=== PATIENT | female | born 1950 | race Caucasian/White ===

== ENCOUNTER 2019-11-03 12:32 | Outpatient (CLI) | payer MEDICARE, SELFPAY ==
[2019-11-03 12:49] LABS: Basophils Percent Auto 0.8 % (0.2-1.2); Eosinophils Percent Auto 0.8 % (0-4.4); Hematocrit 41.1 % (37.0-47.0); Hemoglobin 13.3 g/dL (12.0-15.0); Immature Granulocyte Absolute 0.01 K/mm3 (0.00-0.031); Immature Granulocyte Percent A 0.3 % (0-0.5); Lymphocytes Absolute Auto 1.42 K/mm3 (0.9-3.2); Lymphocytes Percent Auto 38.7 % (18.3-44.2); Mean Corpuscular HGB Conc 32.4 g/dl (32-36); Mean Corpuscular Hemoglobin 30.5 pg (26-34); Mean Corpuscular Volume 94.3 fl (80-100); Mean Platelet Volume 10.4 fl (7.4-10.4); Monocytes Absolute Auto 0.4 K/mm3 (0.1-0.6); Monocytes Percent Auto 9.8 % (2.6-8.5); Neutrophils Absolute Auto 1.8 K/mm3 (1.3-6.7); Neutrophils Percent Auto 49.6 % (45.5-73.1); Platelet Count Result 146 k/mm3 (150-375); Red Blood Count 4.36 M/mm3 (4.2-5.4); Red Cell Distribution Width 12.6 % (11.5-14.5); White Blood Count 3.7 K/mm3 (4.5-10.0)
[2019-11-03 12:54] LABS: Blood Urea Nitrogen 28 mg/dL (8-26); Carbon Dioxide 28 mmol/L (22-30); Chloride 100 mmol/L (98-109); Estimated Glomerular Filt Rate 55; Glucose 122 mg/dL (70-105); Potassium 3.8 mmol/L (3.5-4.9); Sodium 139 mmol/L (138-146)
[2019-11-03 16:33] LABS: Alanine Aminotransferase 27 U/L (4-35); Albumin Level 4.2 g/dL (3.5-5.1); Alkaline Phosphatase 65 U/L (38-126); Aspartate Amino Transferase 38 U/L (14-36); Bilirubin,Total 0.5 mg/dL (0.2-1.3); Blood Urea Nitrogen 28 mg/dL (7-17); Calcium 9.3 mg/dL (8.4-10.2); Carbon Dioxide 30 mmol/L (22-30); Chloride 100 mmol/L (98-107); Estimated Glomerular Filt Rate > 60; Glucose 116 mg/dL (65-105); Potassium 3.9 mmol/L (3.4-5.0); Sodium 136 mmol/L (137-145)
== END 2019-11-03 12:33 | disposition home or self-care (01) ==
LOC: ANHLAB 12:34
PROVIDERS: PCP Family Medicine; Visit Provider Internal Medicine Hematology & Oncology
DX: D72.819 Decreased white blood cell count, unspecified (principal)
CPT/HCPCS: 36415; 80048; 80053; 85025

== ENCOUNTER 2020-02-08 09:42 | Emergency (ER) | payer MEDICARE, SELFPAY ==
[2020-02-08 09:54] VITALS: BP 147/75; PULSE 65; RESP 20; TEMP 36.3; O2SAT 99
--- NOTE | 2020-02-08 09:57 | ED.FEMALEGU ---
HPI - Female Genitourinary General Chief complaint: Urogenital-Female Stated complaint: pos uti Source: patient and RN notes reviewed Mode of arrival: ambulatory Limitations: no limitations History of Present Illness HPI Narrative: The patient, on several routine meds, presents with urinary discomfort. Patient states she has a one-week history of urinary frequency and urgency. No hematuria, fever, low back pain, abdominal pain, N/V/D, vaginal discharge, cough, shortness of breath, loss of taste/smell. Symptoms are mild, unrelieved with OTC preparations and pushing fluids, most noticeable with micturition, similar to prior episode years ago Related Data Home Medications Medication Instructions Recorded Confirmed albuterol sulfate 90 mcg/actuation 2 puff INHALATION Q4H PRN gm 11/12/19 02/08/20 aerosol inhaler aspirin 81 mg tablet,delayed 81 mg PO DAILY 11/12/19 02/08/20 release cholecalciferol (vitamin D3) 25 25 mcg PO BID tablet 11/12/19 02/08/20 mcg (1,000 unit) tablet losartan 50 mg-hydrochlorothiazide 1 tablet PO DAILY 11/12/19 02/08/20 12.5 mg tablet meloxicam 15 mg tablet 15 mg PO DAILY 11/12/19 02/08/20 montelukast 10 mg tablet 10 mg PO DAILY 11/12/19 02/08/20 multivitamin 1 tablet PO DAILY 11/12/19 02/08/20 omega-3 fatty acids 1,000 mg 1,000 mg PO DAILY 11/12/19 02/08/20 capsule omeprazole 40 mg capsule,delayed 40 mg PO DAILY 11/12/19 02/08/20 release Allergies Allergy/AdvReac Type Severity Reaction Status Date / Time No Known Allergies Allergy Verified 02/08/20 09:45 Review of Systems Review of Systems: Narrative: General/Constitutional: No weight loss,fever Eyes: N0: Redness,discharge Ears/Nose/Throat: No: Epistaxis,ear discharge Respiratory: Denies: Hemoptysis Gastrointestinal: No Vomiting, Bleeding-rectal Skin: No Lumps, eruption Neurologic: No Focal Weakness,Sz Hematologic: Denies: Petechiae/Purpura Psychiatric: No: Suicida ideationl All Other Systems: Reviewed and Negative [facility] Family History Family History (Updated 04/24/18 @ 10:17 by DOCTOR UNKNOWN) Father Family history of congestive heart failure Mother Patient's mother is Social History Social History Smoking status: Former smoker Smoking end date: 07/09/99 Alcohol intake: current Gender identity (if verbalized by the patient): Female Comments At time of signature, agree with nursing past medical, surgical, social and family history. There is no relevant family history pertinent to the presenting complaint Exam Narrative: Exam Narrative: General Appearance: Well appearing, No distress EYE: PERRLA, Conjunctiva clear Mouth/Throat: Normal appearing, Normal lips, Supple Respiratory: Airway patent, No respiratory distress Abdomen: Soft, Non-tender, Musculoskeletal: Full ROM Skin: Warm, Dry Neurological: A&O x3, CN II-X intact Psychiatric: Normal mood, Normal affect Course Vital Signs Vital signs: Vital Signs Temperature 97.4 F L 02/08/20 09:54 Pulse Rate 65 02/08/20 09:54 Respiratory Rate 20 02/08/20 09:54 Blood Pressure 147/75 H 02/08/20 09:54 Pulse Oximetry 99 02/08/20 09:54 Temperature 97.4 F L 02/08/20 09:54 Pulse Rate 65 02/08/20 09:54 Respiratory Rate 20 02/08/20 09:54 Blood Pressure 147/75 H 02/08/20 09:54 Pulse Oximetry 99 02/08/20 09:54 MDM - Female Genitourinary Lab Data Labs: Urine Glucose Negative Reference Range: Negative Urine Bilirubin Negative Reference Range: Negative Urine Ketone Negative Reference Range: Negative Urine Specific [place] 1.010 Reference Range:1.001-1.035 Urine Blood 1+ Reference Range: Negative * * Urine pH 7.0 Reference Range: 5.0-9.0 Urine Protein Negati
== END 2020-02-08 10:24 | disposition home or self-care (01) ==
PROVIDERS: Emergency Provider Emergency Medicine; PCP Family Medicine
DX: N30.00 Acute cystitis without hematuria (principal); Z79.82 Long term (current) use of aspirin; Z87.891 Personal history of nicotine dependence
CPT/HCPCS: 81003; 87086; 87088; 99213; G0463

== ENCOUNTER 2020-06-21 13:59 | Outpatient (CLI) | payer MEDICARE, SELFPAY ==
[2020-06-21 14:15] LABS: Basophils Percent Auto 0.9 % (0.2-1.2); Eosinophils Absolute Auto 0.1 K/mm3 (0-0.3); Eosinophils Percent Auto 1.4 % (0-4.4); Hemoglobin 13.3 g/dL (12.0-15.0); Lymphocytes Absolute Auto 1.57 K/mm3 (0.9-3.2); Lymphocytes Percent Auto 36.4 % (18.3-44.2); Mean Corpuscular HGB Conc 32.4 g/dl (32-36); Mean Corpuscular Hemoglobin 29.6 pg (26-34); Mean Corpuscular Volume 91.3 fl (80-100); Mean Platelet Volume 10.3 fl (7.4-10.4); Monocytes Absolute Auto 0.4 K/mm3 (0.1-0.6); Neutrophils Absolute Auto 2.2 K/mm3 (1.3-6.7); Neutrophils Percent Auto 51.3 % (45.5-73.1); Platelet Count Result 177 k/mm3 (150-375); Red Blood Count 4.49 M/mm3 (4.2-5.4); Red Cell Distribution Width 12.5 % (11.5-14.5); White Blood Count 4.3 K/mm3 (4.5-10.0)
[2020-06-21 15:23] LABS: Alanine Aminotransferase 27 U/L (4-35); Albumin Level 4.2 g/dL (3.5-5.1); Alkaline Phosphatase 63 U/L (38-126); Anion Gap 8 mmol/L (8-16); Aspartate Amino Transferase 35 U/L (14-36); Bilirubin,Total 0.4 mg/dL (0.2-1.3); Blood Urea Nitrogen 31 mg/dL (7-17); Calcium 9.7 mg/dL (8.4-10.2); Carbon Dioxide 30 mmol/L (22-30); Chloride 102 mmol/L (98-107); Estimated Glomerular Filt Rate 49; Glucose 101 mg/dL (65-105); Potassium 3.7 mmol/L (3.4-5.0); Sodium 140 mmol/L (137-145)
[2020-06-22 11:24] LABS: Blood Urea Nitrogen 31 mg/dL (8-26); Carbon Dioxide 29 mmol/L (22-30); Chloride 102 mmol/L (98-109); Estimated Glomerular Filt Rate 49; Glucose 99 mg/dL (70-105); Potassium 3.7 mmol/L (3.5-4.9); Sodium 140 mmol/L (138-146)
== END 2020-06-21 14:00 | disposition home or self-care (01) ==
LOC: ANHLAB 14:01
PROVIDERS: PCP Family Medicine; Visit Provider Internal Medicine Hematology & Oncology
DX: D69.6 Thrombocytopenia, unspecified (principal)
CPT/HCPCS: 36415; 80048; 80053; 85025

== ENCOUNTER 2020-06-29 13:14 | Outpatient (CLI) | payer MEDICARE, SELFPAY ==
--- NOTE | ~2020-06-29 | MM_ITS ---
EXAMINATION: MM screening [facility] HISTORY: Screening mammogram TECHNIQUE: Craniocaudal and mediolateral oblique 3-D tomosynthesis images were obtained and synthetic 2-D images were generated. CAD analysis was submitted and interpreted. COMPARISON: 06/27/2019, 06/25/2018, 06/22/2017 bilateral digital screening mammogram examinations BREAST PARENCHYMAL COMPOSITION: There are scattered areas of fibroglandular density. FINDINGS: Stable mild fibroglandular asymmetry. There is no evidence of suspicious mass, calcificatio n, or architectural distortion to suggest malignancy in either breast. There has been no suspicious i nterval change. IMPRESSION: 1. No mammographic evidence of malignancy. 2. Recommend routine screening mammography in one year. BI-RADS Category 2: Benign finding(s). Reviewed, dictated and finalized at location A. ING ASSISTANT
== END 2020-06-29 13:15 | disposition home or self-care (01) ==
PROVIDERS: PCP Family Medicine; Visit Provider Obstetrics & Gynecology
DX: Z12.31 Encounter for screening mammogram for malignant neoplasm of breast (principal)
CPT/HCPCS: 77063; 77067

== ENCOUNTER 2020-11-27 17:48 | Emergency (ER) | payer MEDICARE, SELFPAY ==
--- NOTE | ~2020-11-27 | XR_ITS ---
EXAMINATION: XR knee RT min 4V DATE: 11/27/2020 18:37 INDICATION: Right knee pain and swelling TECHNIQUE: Four views of the right knee were obtained. COMPARISON: None. FINDINGS: Alignment is normal. No fracture or osteochondral lesion. There is a small knee joint effus ion. No joint effusion/synovitis. Soft tissues are unremarkable. IMPRESSION: 1. Small knee joint effusion without acute osseous abnormality. Reviewed, dictated and finalized at location A.
[2020-11-27 17:51] VITALS: BP 153/77; PULSE 62; RESP 17; TEMP 36.2; O2SAT 100
--- NOTE | 2020-11-27 18:24 | ED.LOWEXIN ---
HPI - Extremity Injury (Lower) General Chief Complaint: Extremity Injury, Lower Stated Complaint: right leg injury Time Seen by Provider: 11/27/20 17:59 History of Present Illness HPI Narrative: Patient is a 70-year-old female who presents ER with right knee pain. Patient reports she has been having some discomfort in her right lower extremity from her hip to her knee over the last week. Today she was stepping to get in her car when her right knee buckled and she had sudden worsening of her pain. Its in her posterior knee. Has pain with bearing weight. Reports mild swelling over the last 2 days to the knee but not the lower extremity. No numbness or tingling to lower extremity. No calf pain or chest pain or shortness of breath. Patient reports worsening of pain in her knee with lateral movements of the foot in relation to the knee. Related Data Home Medications Medication Instructions Recorded Confirmed aspirin 81 mg tablet,delayed 81 mg PO DAILY 11/12/19 11/12/20 release cholecalciferol (vitamin D3) 25 25 mcg PO BID tablet 11/12/19 11/12/20 mcg (1,000 unit) tablet losartan 50 mg-hydrochlorothiazide 1 tablet PO DAILY 11/12/19 11/12/20 12.5 mg tablet meloxicam 15 mg tablet 15 mg PO DAILY 11/12/19 11/12/20 multivitamin 1 tablet PO DAILY 11/12/19 11/12/20 omega-3 fatty acids 1,000 mg 1,000 mg PO DAILY 11/12/19 11/12/20 capsule omeprazole 40 mg capsule,delayed 40 mg PO DAILY 11/12/19 11/12/20 release Allergies Allergy/AdvReac Type Severity Reaction Status Date / Time No Known Allergies Allergy Verified 11/27/20 17:51 Review of Systems Constitutional: Constitutional: Denies chills and Denies fever(s) Cardiovascular: Cardiovascular: Denies chest pain Respiratory: Respiratory: Denies dyspnea Musculoskeletal: Musculoskeletal: Reports arthralgias and Reports joint swelling Neurologic: Denies focal weakness and Denies numbness PMFSH Past Medical History Medical History (Updated 11/27/20 @ 19:50 by Christopher Hung MD) GERD (gastroesophageal reflux disease) Hypertension Surgical History Surgical History (Updated 11/27/20 @ 18:26 by Christopher Hung MD) No pertinent past surgical history Family History Family History Father Family history of congestive heart failure Mother Patient's mother is Social History Social History Smoking status: Former smoker Smoking end date: 07/09/99 Alcohol intake: current Gender identity (if verbalized by the patient): Female Exam Narrative: Exam Narrative: GENERAL: Well-appearing, well-nourished, and in no acute distress. HEAD: Normocephalic, atraumatic. EXTREMITIES: Focused exam of the right lower extremity shows normal range of motion of the hip/knee/ankle. Patient with increased pain of the right knee with flexion past 90 degrees. Mild swelling to the knee. No redness. No increase elasticity with varus and valgus stressing. Patient does have positive Apley with medial and lateral stressing. Normal pulses in the right lower extremity. No edema in the foot. Negative Homans' sign. SKIN: Warm, dry, no rash. NEURO: No focal deficits. Alert and oriented x3. PSYCH: Normal mood and affect. Course Course Emergency Course: Informed results. Discharge home. Recommend continue meloxicam in addition of Tylenol. Rest, ice, compression, elevation also encouraged. Discussed she should contact PCP for close follow-up. Verbalized understanding. Patient was able to ambulate with a walker while. Vital Signs Vital signs: Vital Signs Temperature 97.2 F L 11/27/20 17:51 Pulse Rate 62 11/27/20 17:51 Respiratory Rate 17 11/27/20 17:51 Blood Pressure 153/77 H 11/27/20 17:51 Pulse Oximetry 100 11/27/20 17:51 Temperature 97.2 F L 11/27/20 17:51 Pulse Rate 62 11/27/20 17:51 Respiratory Rate 17 0
[2020-11-27 20:10] VITALS: BP 149/78; PULSE 69; RESP 20; O2SAT 98
== END 2020-11-27 20:13 | disposition home or self-care (01) ==
PROVIDERS: Emergency Provider Emergency Medicine; PCP Family Medicine
DX: M25.461 Effusion, right knee (principal); Z79.82 Long term (current) use of aspirin; K21.9 Gastro-esophageal reflux disease without esophagitis; I10 Essential (primary) hypertension; Z87.891 Personal history of nicotine dependence
CPT/HCPCS: 73564; 99283

== ENCOUNTER 2021-11-15 09:56 | Outpatient (CLI) | payer MEDICARE, SELFPAY ==
--- NOTE | ~2021-11-15 | MM_ITS ---
EXAMINATION: MM screening [facility] w [facility] HISTORY: Screening TECHNIQUE: Craniocaudal and mediolateral oblique 3-D tomosynthesis images were obtained and synthetic 2-D images were generated. CAD analysis was submitted and interpreted. COMPARISON: Comparison to multiple prior studies sequentially, with oldest reviewed study dated 05/11. BREAST PARENCHYMAL COMPOSITION: There are scattered areas of fibroglandular density. FINDINGS: There is no evidence of suspicious mass, calcification, or architectural distortion to sugg est malignancy in either breast. There has been no suspicious interval change. IMPRESSION: 1. No mammographic evidence of malignancy. 2. Recommend routine screening mammography in one year. BI-RADS Category 1: Negative Reviewed, dictated and finalized at location A.
== END 2021-11-15 09:57 | disposition home or self-care (01) ==
LOC: ANHIMG 09:57
PROVIDERS: PCP Family Medicine; Visit Provider Obstetrics & Gynecology
DX: Z12.31 Encounter for screening mammogram for malignant neoplasm of breast (principal)
CPT/HCPCS: 77063; 77067

== ENCOUNTER 2022-11-28 14:16 | Outpatient (CLI) | payer MEDICARE, SELFPAY ==
--- NOTE | ~2022-11-28 | MM_ITS ---
EXAMINATION: MM screening [facility] w [facility] HISTORY: Screening mammogram TECHNIQUE: Craniocaudal and mediolateral oblique 3-D tomosynthesis images were obtained and synthetic 2-D images were generated. CAD analysis was submitted and interpreted. COMPARISON: 11/15/2021, 06/29/2020, 06/27/2019 BREAST PARENCHYMAL COMPOSITION: There are scattered areas of fibroglandular density. FINDINGS: There is chronic focal asymmetry in the posterior third of the upper outer quadrant of the right breast. No suspicious mass, calcification, or architectural distortion are identified in either breast to suggest malignancy. There has been no suspicious interval change. IMPRESSION: 1. No mammographic evidence of malignancy. 2. Recommend routine screening mammography in one year. BI-RADS Category 2: Benign finding(s). Reviewed, dictated and finalized at location A.
== END 2022-11-28 14:17 | disposition home or self-care (01) ==
PROVIDERS: PCP Family Medicine; Visit Provider Obstetrics & Gynecology
DX: Z12.31 Encounter for screening mammogram for malignant neoplasm of breast (principal)
CPT/HCPCS: 77063; 77067

== ENCOUNTER 2023-12-04 14:11 | Outpatient (CLI) | payer MEDICARE, SELFPAY ==
--- NOTE | ~2023-12-04 | MM_ITS ---
EXAMINATION: MM screening [facility] HISTORY: Screening TECHNIQUE: Craniocaudal and mediolateral oblique 3-D tomosynthesis images were obtained and synthetic 2-D images were generated. CAD analysis was submitted and interpreted. COMPARISON: Comparison to multiple prior studies sequentially, with oldest reviewed study dated 06/08. BREAST PARENCHYMAL COMPOSITION: There are scattered areas of fibroglandular density. FINDINGS: There is no evidence of suspicious mass, calcification, or architectural distortion to sugg est malignancy in either breast. There has been no suspicious interval change. IMPRESSION: 1. No mammographic evidence of malignancy. 2. Recommend routine screening mammography in one year. BI-RADS Category 1: Negative Reviewed, dictated and finalized at location B.
== END 2023-12-04 14:12 | disposition home or self-care (01) ==
PROVIDERS: PCP Family Medicine; Visit Provider Obstetrics & Gynecology
DX: Z12.31 Encounter for screening mammogram for malignant neoplasm of breast (principal)
CPT/HCPCS: 77063; 77067

== ENCOUNTER 2024-01-04 10:45 | Outpatient (CLI) | payer MEDICARE, SELFPAY ==
--- NOTE | ~2024-01-04 | XR_ITS ---
3 VIEWS LUMBAR SPINE Ordering provider: Doreen Flores History: . RT SIDED LBP X 1 YR, NEW ANTERIOR NUMBNESS W/WALKING . Comparison: None. FINDINGS: VERTEBRAL BODIES:Levoscoliosis. Loss of volume of L1 and L2 most likely chronic. DISK SPACES: Narrowing of the disc spaces T12-L1, L1-L2, L2-L3, L3-L4, L4-L5 and L5-S1. Multilevel fa cet joint disease. SOFT TISSUES: Calcific areas in the left renal region which may be a stone. IMPRESSION: No acute osseous abnormality lumbar spine. Loss of volume of L1 and L2 most likely chronic compression. Levoscoliosis. Reviewed, dictated and finalized at location A.
== END 2024-01-04 10:46 | disposition home or self-care (01) ==
PROVIDERS: PCP Family Medicine
DX: M54.50 Low back pain, unspecified (principal); M41.86 Other forms of scoliosis, lumbar region
CPT/HCPCS: 72110

== ENCOUNTER 2024-02-05 11:05 | Emergency (ER) | payer MEDICARE, SELFPAY ==
--- NOTE | 2024-02-05 11:10 | ED.URI ---
HPI - URI/Sore Throat General Chief Complaint: Upper Respiratory Infection Stated Complaint: cold symptoms Time Seen by Provider: 02/05/24 11:16 Source: patient Mode of arrival: ambulatory Limitations: no limitations History of Present Illness HPI Narrative: Cheyanne is a 73-year-old female patient presenting to the clinic today with complaints of nasal congestion, cough, and scratchy sore throat for the past 6 days. She just got back from [place]. Reports that the cough is keeping her up at night. States that when she blew her nose this morning she had a low bit of green drainage. Reports some sinus pressure/headache. Denies any shortness of breath or cough. MD elicited complaint: cough, sore throat and nasal congestion Related Data Home Medications Medication Instructions Recorded Confirmed aspirin 81 mg tablet,delayed 81 mg PO DAILY 11/12/19 02/05/24 release losartan 50 mg-hydrochlorothiazide 1 tablet PO DAILY 11/12/19 02/05/24 12.5 mg tablet meloxicam 15 mg tablet 15 mg PO DAILY 11/12/19 02/05/24 multivitamin (Daily Multi-Vitamin 1 tablet PO DAILY 11/12/19 02/05/24 tablet) omega-3 fatty acids 1,000 mg 1,000 mg PO DAILY 11/12/19 02/05/24 capsule (Fish Oil Concentrate) omeprazole 40 mg capsule,delayed 40 mg PO DAILY 11/12/19 02/05/24 release ergocalciferol (vitamin D2) 1,250 50,000 unit PO WEEKLY 11/13/22 02/05/24 mcg (50,000 unit) capsule atorvastatin 10 mg tablet 10 mg PO DAILY 01/23/24 02/05/24 calcium carbonate 600 mg PO DAILY 01/23/24 02/05/24 fluticasone propionate 50 1 spray intranasal BID 01/23/24 02/05/24 mcg/actuation nasal spray,suspension lutein 20 mg-zeaxanthin 4 mg 1 cap PO DAILY 01/23/24 02/05/24 capsule magnesium aspart,citrate,oxide 400 mg PO DAILY 01/23/24 02/05/24 albuterol sulfate 90 mcg/actuation 2 puff inhalation PRN PRN 02/05/24 02/05/24 aerosol inhaler Shortness Of Breath Or Wheezing cetirizine 10 mg tablet 10 mg PO DAILY 02/05/24 02/05/24 Allergies Allergy/AdvReac Type Severity Reaction Status Date / Time No Known Allergies Allergy Verified 02/05/24 11:14 Review of Systems Review of Systems: Pertinent positives per HPI. Patient denies any fever, chills, rash, headache, visual changes, dizziness, shortness of breath, chest pain, palpitations, nausea, vomiting, diarrhea, constipation, abdominal pain, or any urinary issues. PMFSH Past Medical History Medical History GERD (gastroesophageal reflux disease) Hypertension Surgical History Surgical History No pertinent past surgical history Family History Family History Father Family history of congestive heart failure Mother Patient's mother is Social History Social History Smoking status: Former smoker Smoking end date: 07/09/99 Alcohol intake: current Gender identity (if verbalized by the patient): Female Comments At the time of my signature, I reviewed and agree with the nursing past medical, surgical, social, and family history. There is no relevant family history pertinent to the patient complaint. Exam Narrative: General: Well-developed, well nourished, in no apparent distress Head: Normocephalic, atraumatic Eyes: Pupils equally round and reactive to light bilaterally, EOM intact, sclera and conjunctive clear, no discharge, lids normal Ears: TMs intact and congested, ear canals clear, no drainage, grossly hearing normal. Nose: Nares patent, clear nasal discharge, no inflammation, no sinus tenderness. Mouth: Oral pharynx without lesions or masses, good dentition, MMM. Postnasal drip Neck: Supple, trachea midline, no enlargement of anterior or posterior cervical nodes, no thyroid masses or goiter palpable. Cardio: Re
[2024-02-05 11:18] VITALS: BP 155/103; PULSE 67; RESP 18; TEMP 36.6; O2SAT 99
== END 2024-02-05 11:48 | disposition home or self-care (01) ==
PROVIDERS: Emergency Provider Nurse Practitioner Family; PCP Family Medicine
DX: J06.9 Acute upper respiratory infection, unspecified (principal); K21.9 Gastro-esophageal reflux disease without esophagitis; I10 Essential (primary) hypertension; Z87.891 Personal history of nicotine dependence
CPT/HCPCS: 99213; G0463

== ENCOUNTER 2024-02-22 12:45 | Outpatient (CLI) | payer MEDICARE, SELFPAY ==
--- NOTE | ~2024-02-22 | MR_ITS ---
EXAMINATION: MR lumbar spine wo con DATE: 02/22/2024 13:29 INDICATION: Right-sided low back pain TECHNIQUE: Magnetic resonance imaging (MRI) of the lumbar spine was performed without intravenous con trast. Sequences included sagittal T2-weighted FSE, sagittal T2-weighted FS FSE, sagittal T1-weighted FSE, and axial T2-weighted FSE. COMPARISON: None FINDINGS: Lumbar levorotoscoliosis with 45 degree levocurvature. There is severe right side predominant disc he ight loss with degenerative endplate remodeling at L1-L2 through L3-L4. There are associated T1 and T 2 hyperintense fibrofatty and fibrovascular degenerative endplate changes. There is secondary mild ri ght-sided vertebral body height loss at L2 and L3. There is additional severe disc height loss at T12 -L1 and mild disc height loss at L4-L5 and L5-S1. The conus medullaris terminates at L1. There is nor mal signal in the caudal spinal cord. The following disc levels are specifically discussed: T12-L1: Disc is bulging. There is mild right and mild to moderate left facet joint osteoarthritis. Th ere is mild left neural foraminal stenosis. There is mild central canal stenosis. L1-L2: Disc is mildly bulging with annular fissure and superimposed left foraminal zone disc protrusi on. There is mild bilateral facet joint osteoarthritis. There is moderate right and mild left neural foraminal stenosis. There is mild central canal stenosis. L2-L3: Disc is mildly bulging. There is moderate bilateral facet joint osteoarthritis. There is moder ate right and mild left neural foraminal stenosis. There is mild central canal stenosis with asymmetr ic mild narrowing of the right lateral recess. L3-L4: Disc is bulging. There is hypertrophy of the ligamentum flavum. There is severe bilateral fac et joint osteoarthritis. There is moderate bilateral neural foraminal stenosis. There is moderate will tral canal stenosis with narrowing at the lateral recesses, right greater than left. L4-L5: Disc is bulging with annular fissure and superimposed left foraminal zone disc extrusion with disc material extending a few millimeter cephalad and caudal to the level of the endplates. There is hypertrophy of the ligamentum flavum. There is moderate right and severe left facet joint osteoarthr itis. There is mild to moderate right and moderate left neural foraminal stenosis. There is mild cent ral canal stenosis with narrowing of the lateral recesses, left greater than right. L5-S1: Disc is bulging with annular fissure and superimposed central to left foraminal zone disc extr usion with disc material extending up to 4 mm cephalad to the level of the inferior endplate of L5. T here is moderate right and severe left facet joint osteoarthritis. There is mild right and moderate l eft neural foraminal stenosis. There is mild central canal stenosis with mild narrowing of the left l ateral recess. IMPRESSION: 1. 45 degree lumbar levorotoscoliosis with severe spondylosis. Reviewed, dictated and finalized at location A.
--- NOTE | ~2024-02-22 | XR_ITS ---
XR hip RT min 2V 02/22/2024 13:00 Indication: Right hip pain Procedure: 2 views right hip Comparison: No prior studies for comparison. Findings: Mild osteoarthritis. No fracture or traumatic malalignment. No significant soft tissue abno rmality. Normal mineralization. Impression: 1: Mild osteoarthritis of the right hip. Reviewed, dictated and finalized at location B. Impression: 1: Mild osteoarthritis of the right hip.
== END 2024-02-22 12:46 ==
LOC: GOSHIMG 12:46
PROVIDERS: PCP Family Medicine
DX: M25.551 Pain in right hip (principal); M16.11 Unilateral primary osteoarthritis, right hip; M54.50 Low back pain, unspecified; M47.816 Spondylosis without myelopathy or radiculopathy, lumbar region
CPT/HCPCS: 72148; 73502

== ENCOUNTER 2025-01-07 15:15 | Outpatient (CLI) | payer MEDICARE, SELFPAY ==
--- NOTE | ~2025-01-07 | MM_ITS ---
EXAMINATION: MM screening [facility] BI w turner HISTORY: Screening mammogram TECHNIQUE: Craniocaudal and mediolateral oblique 3-D tomosynthesis images were obtained and synthetic 2-D images were generated. CAD analysis was submitted and interpreted. COMPARISON: 12/04/2023, 11/28/2022, 11/15/2021, 06/29/2020 BREAST PARENCHYMAL COMPOSITION:Not Dense. There are scattered areas of fibroglandular density. FINDINGS: No suspicious mass, calcification, or architectural distortion are identified in either chito ast to suggest malignancy. There has been no suspicious interval change. IMPRESSION: No mammographic evidence of malignancy. Recommend routine screening mammography in one year. BI-RADS Category 1: Negative Reviewed, dictated and finalized at location .
--- OUTSIDE RECORDS SUMMARY | 2025-01-07 15:20 | XMS_ITS | Clinical Summary ---
Author Organization [facility] Address [address] [place] [address] Care Team Providers Care Population Health Manager Name Role Phone Unavailable Primary Care Provider Unavailabl e Source Comments [facility],non-owned Affiliates and Associated Physician Practices is amultiple site organization consisting of ambulatory clinics and hospital sitesin [place], [place], [place] and [place]. This disclosure is being madepursuant to the Care Everywhere program and may not contain all information available regarding this patient. Last updated 18.[facility] [employer] Social History Tobacco Use Types Packs/Day Years Used Date Smoking Tobacco: Never Assessed Comments Unknown Sex and Gender Information Value Date Recorded Sex Assigned at Not on file Legal Sex Female 6:01 PM PYROGLAZER Gender Identity Not on file Sexual Orientation Not on file Plan of Treatment Health Maintenance Due Date Last Done Comments BONE DENSITY TESTING 1950 COLOGUARD (AGES 45-75) - COL ON CA SCREENING 1950 COLON MONITORING 1950 COLONOSCOPY - COLON CA SCREENING 1950 CT COLONOGRAPHY - COLON CA SCREENING 1950 Colorectal Cancer Screening 1950 FIT - COLON CA SCREENING 1950 FLEX SIG - COLON CA SCREENING 1950 LIPID TESTING 1950 MAMMOGRAM 1950 HEPATITIS C SCREENING 06/14/1968 DTAP/TDAP/TD VACCINES (1 - Tdap) 1969 PNEUMOCOCCAL VACCINE 50+ (1 of 1 - PCV) 2000 ZOSTER VACCINE (1 of 2) 2000 COVID-19 VACCINE ( - 2023-2 5 season) 2024 DEPRESSION SCREENING 07/09/2024 MEDICARE AWV CALENDAR YEAR 2024 INFLUENZA VACCINE (Season Ended) 2025 Respiratory Syncytial Virus (RSV) Vaccine Pt: or over 60 yrs (1 - 1-dose 75+ series) 2025 HEPATITIS B VACCINE Aged Out No longe r eligible based on patient's age to complete this topic HIB VACCINE Aged Out No longer eligi ble based on patient's age to complete this topic HPV VACCINE Aged Out No longer eligi ble based on patient's age to complete this topic MENINGOCOCCAL (Group B) VACC INE SHARED DECISION-MAKING Aged Out No longer eligibl e based on patient's age to complete this topic MENINGOCOCCAL GROUPS A/C/Y/W VACCINE Aged Out No longer eligible b ased on patient's age to complete this topic Insurance [facility] MEDICARE ADV [employer]ET[employer] MEDICARE ADV
--- OUTSIDE RECORDS SUMMARY | 2025-01-07 15:20 | XMS_ITS | Continuity of Care Document ---
Author Organization [facility] Address [address] [place] [address] [address] [place] [address] Phone Care Team Providers Care Wire Bound Box Machine Helper Name Role Phone Leslie OD, Jose Luis Unavailable Unavailable Advance Directives Directive Yes / No Effective Date File Name No Information Encounters Encounter Description Practice Location Reason(s) For Visit Diagnoses Date Provider Providers Copied on Encounter [facility], [id number] [place] [address] [address], [place], [place], [id number], [place] tel:[phone] [facility] No Information [phone] Leslie OD Jose Luis. [address] , [address], [place], [address], [place]. tel:[phone] Family History Family Member Type Diagnosis Age At Onset No Information Payers Payer name Insurance type Covered alliance party ID Authoriza tion(s) No Information Social History Type Description Quantity Date Captured Comments Sex Female Smoking Status No Information Chief Complaint And Reason For Visit No Information Reason For Referral Reason For Referral No Information History Of Present Illness Encounter Date Complaint History Of Prese nt Illness No Information Functional Status Date Functional Assessmen t No Information Instructions Date Instruction Additional Infor mation No Information Assessments Type Assessment Date No Information Patient Care Teams Name Effective Dates (start - stop) Status Members No Information
--- OUTSIDE RECORDS SUMMARY | 2025-01-07 15:20 | XMS_ITS | Clinical Summary ---
Author Organization [facility] Address [address] [place] [address] Care Team Providers Care Dry House Attendant Name Role Phone Jase Salazar MD Primary Care Provider Allergies No known active allergies Medications meloxicam 15 MG tablet Take 1 tablet (15 mg total) by mouth daily. 01/12/2018 Active montelukast 10 MG tablet Take 1 tablet (10 mg total) by mouth daily. 01/15/2018 Active PROAIR HFA 108 (90 Base) MCG/ACT inhaler Inhale 2 puffs into the lungs every 6 (six) hours as needed. 01/01/2018 Active aspirin EC (ECOTRIN) 81 MG tablet Take 1 tablet (81 mg total) by mouth daily. Active fish oil 1000 MG Cap capsule Take 1 capsule (1,000 mg total) by mouth daily. Active vitamin E 400 UNIT capsule Take 1 capsule (400 Units total) by mouth daily. Active magnesium oxide 250 MG tablet Take 400 mg by mouth daily. Active Multiple Vitamin (MULTIVITAMIN ADULT OR) Take 1 tablet by mouth daily. Active traMADol 50 MG tablet Take 1 tablet (50 mg total) by mouth every 6 (six) hours as needed for Pain. Active Ascorbic Acid (VITAMIN C OR) Take 1,000 mg by mouth 2 (two) times a day. Active Calcium Carb-Cholecalci ferol (CALCIUM 1000 + D OR) Take 1 tablet by mouth daily. Active cetirizine 10 MG tablet Take 1 tablet (10 mg total) by mouth daily. Active atorvastatin (LIPITOR) 10 MG tablet 02/20/2022 Active fluticasone propionate (FLONASE) 50 MCG/ACT nasal spray 04/17/2022 Active losartan-hydroC HLOROthiazide (HYZAAR) 50-12.5 MG tablet 02/06/2022 Active vitamin D2, ergocalciferol, (DRISDOL) 1.25 mg capsule Take 1 capsule (1.25 mg total) by mouth once a week. Active Multiple Vitamins-Minera ls (HEALTHY EYES/LUTEIN-JR XANTHIN) Cap Take 2 capsules by mouth daily. Active omeprazole (PRILOSEC) 20 MG capsule Take 1 capsule (20 mg total) by mouth daily. Active Active Problems Problem Noted Date Diagnosed Date Lumbar radiculopathy 03/12/2024 Primary osteoarthritis of right knee 01/18/2021 Acute medial meniscus tear of right knee, initia l encounter 01/03/2021 Acute lateral meniscus tear of right knee, initial encounter 01/03/2021 Mild intermittent asthma without complication (H HS/HCC) 02/13/2018 Essential hypertension 02/13/2018 Encounters Date Type Department Care Team Description 12/29/2024 2:20 PM CDT - 12/29/2024 2:40 PM CDT Surgery [facility] [place] [address] [id number] Joan Morrow MD INJECTION EPIDURAL LUMBAR INTERLAMINAR l34 12/29/2024 1:33 PM CDT - 12/29/2024 2:39 PM CDT Hospital Encounter [facility] [place] [address] [phone] Joan Morrow MD Discharge Disposition: Home or Self Care (Routine Discharge) 12/29/2024 Travel 11/10/2024 Telephone [facility] [place] [address] [id number] Evy Valdez RN Follow Up (//) from Last 3 Months Family History Medical History Relation Comments Broken Bones Brother Cancer Brother Diabetes Brother Hypertension Brother Kidney Cancer Brother bladder cancer Brother detached retina Brother CHF Father Colon Cancer Father Ovarian Cancer Mother Relation Status Comments Brother Alive Father Mother Social History Tobacco Use Types Packs/Day Years Used Date Smoking Tobacco: Former Cigarettes 0.3 40 1 960 - 1999 Smokeless Tobacco: Never Tobacco Cessation:Counseling Given: Not Answered Alcohol Use Standard Drinks/Week Comments Yes 0 (1 standard drink = 0.6 oz pur e alcohol) occasional Comments No Sex and Gender Information Value Date Recorded Sex Assigned at Not on file Legal Sex Female 1:13 PM CDT Gender Identity Not on file Sexual Orientation Not on file Last Filed Vital Signs Vital Sign Reading Time Taken Comments Blood Pressure 155/91 12/29/2024 2:25 PM CDT Pulse 66 12/29/2024 2:25 PM CDT Temperature 36.4 C (97.6 F) 12/29/2024 1:47 PM CDT Respiratory Rate 18 12/29/2024 2:25 PM CDT Oxygen Saturation 98% 12/29/2024 2:25 PM CDT Inhaled Oxygen Concentration - - Weight 87.5 kg (193 lb) 12/29/2024 1:47 PM CDT Height 171.5 cm (5' 7.5) 12/29/2024 1:47 PM CDT Body Mass Index 29.78 12/29/2024 1:47 PM CDT Plan of Treatment Health Maintenance Due Date Last Done Comments Hepatitis C 1968 DTaP, Tdap and Td Vaccines ( 1 - Tdap) 1969 Pneumococcal Vaccine: 50+ Years (1 of 2 - PCV) 1969 Mammogram Screening 1990 Zoster Vaccines (1 of 2) 2000 RSV Immunization or 60+ Years (1 - Risk 60-74 years 1-dose series) 2010 Annual Medicare Wellness Visit 2015 Dexa Scan (General) 2015 COVID-19 Vaccine (3 - 2023-2 5 season) 2024 11/01/2020, 10/09/2020 Colorectal Cancer Screening Colonoscopy (10 Years) 04/21/2032 04/21/2022, 04/21/2022 Meningococcal B Vaccine Aged Out No l onger eligible based on patient's age to complete this topic Meningococcal Vaccine Aged Out No nicole aidan eligible based on patient's age to complete this topic RSV Immunizations Under 20 Months Aged Out No longer eligible b ased on patient's age to complete this topic Procedures Procedure Name Priority Date/Time Associated Diagnosis Comments NJX INTERLAMINAR LMBR/SAC 12/29/2024 2:18 PM CDT Lumbar radiculopathy XR PAIN CLINIC C-ARM Today 12/29/2024 2:13 PM CDT COLONOSCOPY 04/21/2022 6:36 AM CDT from Last 3 Months or Most Recently Relevant to Health Maintenance Results * XR PAIN CLINIC C-ARM (12/29/2024 2:13 PM CDT) Narrative Radiology, Technologist - 12/29/2024 2:13 PM CDT This report does not contain a radiologist's interpretation. Please review associated procedure and/or operative report. Joan Morrow MD GENERAL IMAGING Final Result * Colonoscopy (04/21/2022 6:36 AM CDT) Hernán Linda MD GI PROCEDURE ORDERABLES Final Result from Last 3 Months or Most Recently Relevant to Health Maintenance Insurance Advance Directives Documents on File Type Date Recorded Patient Form Drafter Expl anation Power of Donor Relations Officer 12/29/2024 1:35 PM POA D OCS Care Teams Dry House Attendant Relationship Specialty Start Date End Date Jase Salazar MD [address] [place] [address] PCP - General FAMILY PRACTICE 02/08/18
--- OUTSIDE RECORDS SUMMARY | 2025-01-07 15:20 | XMS_ITS | Encounter Summary ---
Author Organization [facility] Address [address] [place] [address] Care Team Providers Care Cashier Supervisor Name Role Phone Unavailable Primary Care Provider Unavailabl e Encounter Details Date Type Department Care Team (Late st Contact Info) Description 01/15/2020 Lab Requisition [facility] DermPath Lab [address] [place] [id number] Artemio Almeida MD [address] [place] [address] Social History Tobacco Use Types Packs/Day Years Used Date Smoking Tobacco: Never Assessed Comments Unknown Sex and Gender Information Value Date Recorded Sex Assigned at Not on file Legal Sex Female 6:01 PM BOILER BLOWER Gender Identity Not on file Sexual Orientation Not on file documented as of this encounter Plan of Treatment Not on file documented as of this encounter Procedures Procedure Name Priority Date/Time Associated Diagnosis Comments DERMATOPATHOLOGY Routine 01/14/2020 12:0 0 AM CDT documented in this encounter Results * DERMATOPATHOLOGY (01/14/2020 12:00 AM CDT) Case Report Dermatopathology Report Case: [id number] Authorizing Provider: Artemio Almeida MD Collected: 01/14/2020 12:00 AM Ordering Location: [facility] Derm[facility] Lab Received: 01/15/2020 11:30 AM Pathologist: Leah Rodriguez MD Specimen: Skin, right cheek 0 3:45 PM CDT DERMATOPATHOLOGY LABORATORY Final Diagnosis Specimen A. 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 0 3:45 PM CDT DERMATOPATHOLOGY LABORATORY Gross Description Specimen A: Received is one formalin filled container labeled with the patient's name and designated right cheek. The specimen consists of a shave biopsy measuring [id number]. Jar 0. 0 3:45 PM CDT DERMATOPATHOLOGY LABORATORY Microscopic Description Specimen A. SKIN, right cheek: The epidermis shows parakeratosis, full thickness disorderly maturation of keratinocytes, mitoses at different levels, and dyskeratotic cells. 0 3:45 PM CDT DERMATOPATHOLOGY LABORATORY Disclaimer An external and internal positive and negative controls are appropriate for the histochemical, immunohistochemical and immunofluorescence stain(s) in this case (if any), except where stated explicitly. The performance characteristics of the stain(s) cited in this report were developed and its performance characteristic determined by the Dermatopathology Laboratory at [facility], directed by Dr. Radha Rodriguez. These tests need not be, and therefore are not, approved by the [place] Food and Drug Administration. The tests are used for clinical purposes. Billing Codes Specimen Charges Stain Charges 00993 1 0 3:45 PM CDT DERMATOPATHOLOGY LABORATORY Embedded Images 0 3:45 PM CDT DERMATOPATHOLOGY LABORATORY Pathology/Cytolog y TISSUE SPECIMEN FROM SKIN / Unknown 01/14/2020 01/15/2020 11:30 AM CDT Artemio Almeida MD LAB - PATHOLOGY/CYTOLOGY ORD ERABLES Final Result DERMATOPATHOLOGY LABORATORY [facility] - Department of Dermatology [facility]/[address] [place] [address], [facility] [phone] documented in this encounter Visit Diagnoses Not on filedocumented in this encounter
--- OUTSIDE RECORDS SUMMARY | 2025-01-07 15:20 | XMS_ITS | Encounter Summary ---
Author Organization [facility] Address [address] [place] [address] Care Team Providers Care Aerospace Project Manager Name Role Phone Unavailable Primary Care Provider Unavailabl e Encounter Details Date Type Department Care Team (Late st Contact Info) Description 06/27/[address] [facility] DermPath Lab [address] [place] [id number] Artemio Almeida MD [address] [place] [address] Social History Tobacco Use Types Packs/Day Years Used Date Smoking Tobacco: Never Assessed Comments Unknown Sex and Gender Information Value Date Recorded Sex Assigned at Not on file Legal Sex Female 6:01 PM FINANCIAL INSTITUTION TREASURER Gender Identity Not on file Sexual Orientation Not on file documented as of this encounter Plan of Treatment Not on file documented as of this encounter Procedures Procedure Name Priority Date/Time Associated Diagnosis Comments DERMATOPATHOLOGY Routine 06/26/2023 3:33 AM FINANCIAL INSTITUTION TREASURER documented in this encounter Results * DERMATOPATHOLOGY (06/26/2023 3:33 AM FINANCIAL INSTITUTION TREASURER) Case Report Dermatopathology Report Case: [id number] Authorizing Provider: Artemio Almeida MD Collected: 06/26/2023 03:33 AM Ordering Location: [facility] DermPath Lab Received: 06/27/2023 03:39 PM Pathologist: Joelle Vásquez MD Specimen: Skin, left posterior neck 3 2:45 PM FINANCIAL INSTITUTION TREASURER DERMATOPATHOLOGY LABORATORY Final Diagnosis Specimen A. SKIN, left posterior neck: INTRADERMAL MELANOCYTIC NEVUS (D22.4) 3 2:45 PM FINANCIAL INSTITUTION TREASURER DERMATOPATHOLOGY LABORATORY at 1445 FINANCIAL INSTITUTION TREASURER Clinical History R/O BCC, SCC 3 2:45 PM [facility] DERMATOPATHOLOGY LABORATORY Gross Description Specimen A: Received is one formalin filled container labeled with the patient's name and designated left posterior neck. The specimen consists of a shave biopsy measuring 8x6x2 mm. Jar 0. 3 2:45 PM [facility] DERMATOPATHOLOGY LABORATORY Microscopic Description Specimen A. SKIN, left posterior neck: There are nests of cytologically bland melanocytes within the dermis that mature with depth. 3 2:45 PM [facility] DERMATOPATHOLOGY LABORATORY Disclaimer An external and internal positive and negative controls are appropriate for the histochemical, immunohistochemical and immunofluorescence stain(s) in this case (if any), except where stated explicitly. The performance characteristics of the stain(s) cited in this report were developed and its performance characteristic determined by the Dermatopathology Laboratory at [facility], directed by Dr. Radha Rodriguez. These tests need not be, and therefore are not, approved by the [place] Food and Drug Administration. The tests are used for clinical purposes. Billing Codes Specimen Charges Stain Charges 80068 1 3 2:45 PM [facility] DERMATOPATHOLOGY LABORATORY Embedded Images 3 2:45 PM [facility] DERMATOPATHOLOGY LABORATORY Pathology/Cytolo gy TISSUE SPECIMEN FROM SKIN / Unknown 06/26/2023 3:33 AM FINANCIAL INSTITUTION TREASURER 06/27/2023 3:39 PM FINANCIAL INSTITUTION TREASURER Artemio Almeida MD LAB - PATHOLOGY/CYTOLOGY ORD ERABLES Final Result DERMATOPATHOLOGY LABORATORY [facility] - Department of Dermatology [address] [phone] documented in this encounter Visit Diagnoses Not on filedocumented in this encounter
--- OUTSIDE RECORDS SUMMARY | 2025-01-07 15:20 | XMS_ITS | Clinical Summary ---
Author Organization [facility] Address [address] [place] [id number] Care Team Providers Care Regional Operations Director Name Role Phone Jase Salazar MD Primary Care Provider [phone] Allergies No known active allergies Medications vitamin E (vitamin E) 400 unit capsule Take 400 Units by mouth daily Active omeprazole (PriLOSEC) 20 mg capsule Take 20 mg by mouth daily Active multivitamin tablet Take 1 tablet by mouth daily Active montelukast (SINGULAIR) 10 mg tablet 8 Active metoprolol tartrate (LOPRESSOR) 50 mg immediate release tablet Take 1 tab [address] scan and take the other tab with you to your testing. 8 Active meloxicam (MOBIC) 15 mg tablet 8 Active magnesium oxide (MAG-OX) 250 mg (150.8 mg elemental) tablet Take by mouth Active losartan-hydroC HLOROthiazide (HYZAAR) 50-12.5 mg per tablet 0 Active fluticasone propionate (FLONASE) 50 mcg/actuation nasal spray 0 Active docosahexaenoic acid-epa 120-180 mg capsule Take 1,000 mg by mouth 2 (two) times a day Active calcium carbonate-vitam in D3 1500 mg (600 mg elemental) -200 units per tablet Take by mouth Active aspirin 81 mg enteric coated tablet Take 81 mg by mouth daily Active albuterol HFA (ProAir HFA) 90 mcg/actuation inhaler INHALE 2 PUFFS PO PRIOR TO EXERCISTING 8 Active Active Problems Problem Noted Date Diagnosed Date 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 Family History Medical History Relation Name Comments Skin cancer Father Family history of skin cancer - (Added by TW Dao) Relation Name Status Comments Father Social History Tobacco Use Types Packs/Day Years Used Date Smoking Tobacco: Former Comments Unknown Sex and Gender Information Value Date Recorded Sex Assigned at Not on file Legal Sex Female 11:31 AM LINE PATROLLER Gender Identity Not on file Sexual Orientation Not on file Obstetrics History Last Filed Vital Signs Vital Sign Reading Time Taken Comments Blood Pressure 155/91 03/03/2020 10:51 AM CDT Pulse 68 03/03/2020 10:51 AM CDT Temperature 36.3 C (97.4 F) 03/03/2020 10:51 AM CDT Respiratory Rate - - Oxygen Saturation 98% 03/03/2020 10:51 AM CDT Inhaled Oxygen Concentration - - Weight - - Height - - Body Mass Index - - Plan of Treatment Not on file Insurance [facility] MEDICARE ADVANTAGE Care Teams Regional Operations Director Relationship Specialty Start Date End Date Jase Salazar MD [address] [place] [address] PCP - General Family Practice 01/23/20
--- OUTSIDE RECORDS SUMMARY | 2025-01-07 15:20 | XMS_ITS | Clinical Summary ---
Author Organization [facility] Address [address] [facility] [place] [address] Care Team Providers Care Band Saw Marker Name Role Phone Jase Salazar MD Primary Care Provider [phone] Allergies No known active allergies Medications PROAIR HFA 90 mcg/actuation inhaler INHALE 2 PUFFS PO PRIOR TO EXERCISTING 0 8 Active FLUZONE HIGH-DOSE , PF, 180 mcg/0.5 mL Syringe syringe ADM 0.5ML IM UTD 0 04/22/20 1 8 Active fluticasone (FLONASE) 50 mcg/spray Hanson, Suspension 8 Active losartan-hydroC HLOROthiazide (HYZAAR) 50-12.5 mg tablet 8 Active meloxicam (MOBIC) 15 mg tablet 8 Active montelukast (SINGULAIR) 10 mg tablet 8 Active aspirin (ECOTRIN EC) 81 mg Tablet, Delayed Release (E.C.) Take 81 mg by mouth daily. Active vitamin E 400 unit capsule Take 400 Units by mouth daily. Active magnesium oxide 250 mg Tablet Take by mouth. A ctive calcium-vitamin D3 (CALTRATE 600+D) 600 mg(1,500mg) -200 unit Tablet Take by mouth. Activ e omeprazole (PriLOSEC) 20 mg Capsule, Delayed Release(E.C.) Take 20 mg by mouth daily. Active multivitamin (DAILY-ARA) tablet Take 1 Tablet by mouth daily. Active ascorbic acid, vitamin C, (VITAMIN C) 1,000 mg Tablet Take 1,000 mg by mouth daily. Active omega-3 fatty acids/fish oil (FISH OIL OMEGA 3-6-9 ORAL) Take by mouth. Act alison cetirizine (ZyrTEC) 10 mg tablet Take 10 mg by mouth daily. Active Docosahexanoic Acid-Eicosapent 120-180 mg Capsule Take 1,000 mg by mouth daily. Active Active Problems Problem Noted Date Diagnosed Date Thrombocytopenia, unspecified 11/03/2019 Leukopenia 06/05/2018 Family History Medical History Relation Name Comments Cancer Brother Kidney Cancer Brother Cancer Father Colon Cancer Father Cancer Mother Ovarian Cancer Mother Relation Name Status Comments Brother Alive Father Mother Social History Tobacco Use Types Packs/Day Years Used Date Smoking Tobacco: Former Cigarettes 0.2 20 Smokeless Tobacco: Never Alcohol Use Standard Drinks/Week Comments Yes 0 (1 standard drink = 0.6 oz pur e alcohol) occasional Comments No Sex and Gender Information Value Date Recorded Sex Assigned at Not on file Legal Sex Female 1:19 PM COMPUTER TECHNICAL SUPPORT SPECIALIST Gender Identity Not on file Sexual Orientation Not on file Last Filed Vital Signs Vital Sign Reading Time Taken Comments Blood Pressure 141/89 06/21/2021 2:07 PM COMPUTER TECHNICAL SUPPORT SPECIALIST Pulse 71 06/21/2021 2:07 PM COMPUTER TECHNICAL SUPPORT SPECIALIST Temperature 37.1 C (98.7 F) 06/21/2021 2:07 PM COMPUTER TECHNICAL SUPPORT SPECIALIST Respiratory Rate 20 04/30/2019 1:13 PM CDT Oxygen Saturation 98% 06/21/2021 2:07 PM COMPUTER TECHNICAL SUPPORT SPECIALIST Inhaled Oxygen Concentration - - Weight 83.7 kg (184 lb 8 oz) 06/21/2021 2:07 PM COMPUTER TECHNICAL SUPPORT SPECIALIST Height 172.7 cm (5' 8) 06/21/2021 2:07 PM COMPUTER TECHNICAL SUPPORT SPECIALIST Body Mass Index 28.05 06/21/2021 2:07 PM COMPUTER TECHNICAL SUPPORT SPECIALIST Plan of Treatment Health Maintenance Due Date Last Done Comments DTAP/TDAP/TD VACCINES (1 - Tdap) 1969 PNEUMOCOCCAL VACCINE 50+ YEARS (1 of 2 - PCV) 06/19/19 69 BREAST CANCER SCREENING 1990 COLORECTAL SCREENING 1995 Colorectal Cancer Screening 1995 FIT-DNA Q 3 years 1995 FIT/FOBT Q 1 year 1995 Flex Sig/CT Colonography Q 5 years 1995 ZOSTER VACCINE (1 of 2) 2000 OSTEOPOROSIS SCREENING 2015 INFLUENZA VACCINE (#1) 2025 RSV VACCINE (60+ or ) (1 - 1-dose 75+ series) 2025 Insurance Care Teams Band Saw Marker Relationship Specialty Start Date End Date Jase Salazar MD [address] [place] [address] PCP - General Family Practice 05/29/18
--- OUTSIDE RECORDS SUMMARY | 2025-01-07 15:20 | XMS_ITS | Referral Summary ---
Author Organization [facility] Address [address] [place] [address] Care Team Providers Care Cement And Concrete Plant Worker Name Role Phone Jase Salazar MD Primary Care Provider [phone] Allergies No known active allergies Medications vitamin [...] carcinoma in situ (SCCIS) of skin 11/29/2015 Social History Tobacco Use Types Packs/Day Years Used Date Smoking Tobacco: Former Comments Unknown Sex and Gender Information Value Date Recorded Sex Assigned at Not on file Legal Sex Female 11:31 AM TOMBSTONE ERECTOR Gender Identity Not on file Sexual Orientation [...] Plan of Treatment [place] [id number] [facility] MEDICARE ADVANTAGE Care Teams Cement And Concrete Plant Worker Relationship Specialty Start Date End Date Jase Salazar MD [address] [place], [place] [id number] PCP - General Family Practice 01/23/20
== END 2025-01-07 15:16 | disposition home or self-care (01) ==
LOC: ANHIMG 15:17
PROVIDERS: PCP Family Medicine; Visit Provider Obstetrics & Gynecology
DX: Z12.31 Encounter for screening mammogram for malignant neoplasm of breast (principal)
CPT/HCPCS: 77063; 77067